=== PATIENT | male | born 1955 | race Asian ===

== ENCOUNTER 2018-02-01 06:15 | Day surgery (SDC) | payer OTHER ==
[~2018-02-01 06:15] MED LIST: MOXIFLOXACIN 0.5% 3 ML OPH OPER; PHENYLephrine 2.5% 15 ML OPH OPER; PREDNISOLONE ACET 1% 5 ML OPH RIGHT EYE; PROPARACAINE 0.5% 15 ML OPH OPER; SOD CHLORIDE 0.9% 1,000 ML IV; TROPICAMIDE 1% 3 ML OPH OPER
[2018-02-01] MEDS ORDERED: BALANCED SALT SOLN 15 ML OPH IRRIG (07:00)
[2018-02-01] MEDS: PREDNISOLONE ACET 1% 5 ML OPH OPER (07:22)
[2018-02-01] MEDS: TROPICAMIDE 1% 3 ML OPH RIGHT EYE (07:22)
[2018-02-01] MEDS: MOXIFLOXACIN 0.5% 3 ML OPH RIGHT EYE (07:22)
[2018-02-01] MEDS: PHENYLephrine 2.5% 15 ML OPH RIGHT EYE (07:22)
[2018-02-01] MEDS: PROPARACAINE 0.5% 15 ML OPH RIGHT EYE (07:29)
[2018-02-01 07:42] LABS: ADD MAN DIFF? NO
[2018-02-01 07:51] LABS: BASOPHIL # 0.1 10^3/ul (0.0-0.1); BASOPHILS % 0.7 % (0.0-2.0); EOSINOPHILS # 0.7 10^3/ul (0.0-0.5); EOSINOPHILS % 8.9 % (0.0-7.0); HEMATOCRIT 41.9 % (42.0-52.0); HEMOGLOBIN 13.7 g/dl (14.0-18.0); LYMPHOCYTES # 1.1 10^3/ul (0.8-2.9); LYMPHOCYTES % 15.2 % (15.0-51.0); MEAN CORPUSCULAR HEMOGLOBIN 30.8 pg (29.0-33.0); MEAN CORPUSCULAR HGB CONC 32.7 g/dl (32.0-37.0); MEAN CORPUSCULAR VOLUME 94.2 fl (82.0-101.0); MEAN PLATELET VOLUME 11.9 fl (7.4-10.4); MONOCYTE # 0.8 10^3/ul (0.3-0.9); MONOCYTES % 10.7 % (0.0-11.0); NEUTROPHIL # 4.7 10^3/ul (1.6-7.5); NEUTROPHILS % 64.2 % (39.0-77.0); PLATELET COUNT 144 10^3/UL (140-415); RED BLOOD COUNT 4.45 10^6/ul (4.70-6.10); RED CELL DISTRIBUTION WIDTH 13.2 % (11.5-14.5)
[2018-02-01 07:51] LABS: WHITE BLOOD COUNT 7.4 10^3/ul (4.8-10.8)
[2018-02-01 08:09] LABS: INR 1.22; PROTIME 15.6 Sec (11.9-14.9); PT RATIO 1.2
[2018-02-01] MEDS ORDERED: TOBRAMYCIN/DEXAMETH 3.5 GM OPH OINT (08:18)
[2018-02-01] MEDS ORDERED: TETRACAINE 0.5% 4 ML OPH (08:18)
[2018-02-01] MEDS ORDERED: EPINEPHrine 1 MG INJ (08:18)
[2018-02-01 08:19] LABS: ALANINE AMINOTRANSFERASE 51 IU/L (13-69); ALBUMIN 4.9 g/dl (3.3-4.9); ALBUMIN/GLOBULIN RATIO 1.58; ALKALINE PHOSPHATASE 93 IU/L (42-121); ANION GAP 25 (8-16); ASPARTATE AMINO TRANSFERASE 35 IU/L (15-46); BILIRUBIN,INDIRECT 0.7 mg/dl (0-1.1); BILIRUBIN,TOTAL 0.7 mg/dl (0.2-1.3); BLOOD UREA NITROGEN 41 mg/dl (7-20); CALCIUM 8.3 mg/dl (8.4-10.2); CARBON DIOXIDE 25 mmol/L (21-31); CHLORIDE 96 mmol/L (97-110); CREATININE 9.13 mg/dl (0.61-1.24); GLUCOSE 97 mg/dl (70-220); POTASSIUM 5.7 mmol/L (3.5-5.1); SODIUM 140 mmol/L (135-144)
[2018-02-01] MEDS ORDERED: LIDOCAINE 1%/EPI 30 ML INJ (08:25)
[2018-02-01] MEDS ORDERED: MIDAZOLAM 1 MG/ML 2 ML INJ (08:29)
[2018-02-01 08:34] LABS: PARTIAL THROMBOPLASTIN TIME 38.7 Sec (25.0-35.0)
[2018-02-01] MEDS ORDERED: LABETALOL HCL 20MG INJ (08:49)
[2018-02-01] MEDS ORDERED: ONDANSETRON 4 MG INJ IV (09:00)
[2018-02-01] MEDS ORDERED: LABETALOL HCL 20MG INJ IV (09:00)
[2018-02-01] MEDS ORDERED: FENTAnyl 50 MCG/ML VIAL IV (09:00)
[2018-02-01] MEDS ORDERED: PROPOFOL 20 ML (09:07)
[2018-02-01] MEDS ORDERED: BUPIVACAINE 0.5% (SDV) 30 ML INJ (09:10)
[2018-02-01] MEDS ORDERED: CARBACHOL 0.01% 1.5 ML OPH INJ (09:39)
== END 2018-02-01 12:09 | disposition home or self-care (01) ==
LOC: SDS 06:15
DX: H25.89 Other age-related cataract (principal); I10 Essential (primary) hypertension; E11.9 Type 2 diabetes mellitus without complications
CPT/HCPCS: 66984; 80053; 82962; 85025; 85610; 85730

== ENCOUNTER 2018-04-19 12:56 | Day surgery (SDC) | payer OTHER ==
[2018-04-19 15:36] LABS: POTASSIUM 4.9 mmol/L (3.5-5.1)
[2018-04-19] MEDS ORDERED: LIDOCAINE 1% (MDV) 20 ML INJ (15:49)
[2018-04-19] MEDS ORDERED: HEPARIN 1000 UNITS/NS (A-LINE) 1,000 ML (15:49)
[2018-04-19] MEDS ORDERED: IODIXANOL LOCM 100 ML BTL (15:49)
[2018-04-19] MEDS ORDERED: ACETAMINOPHEN 325 MG TAB PO (16:30)
[2018-04-19] MEDS ORDERED: HOLD all METFORMIN and METFORMIN CONTAINING medications for 48 hours post procedure. Chec XX (16:30)
== END 2018-04-19 17:11 | disposition home or self-care (01) ==
LOC: CCL 12:56 → SDS 12:56 → CCL 17:11
DX: I12.0 Hypertensive chronic kidney disease with stage 5 chronic kidney disease or end stage renal disease (principal); N18.6 End stage renal disease; E11.9 Type 2 diabetes mellitus without complications
CPT/HCPCS: 36902; 82962; 84132